=== PATIENT | female | born 1950 | race Caucasian/White ===

== ENCOUNTER 2016-12-25 08:44 | Emergency (ER) | payer MEDICARE, OTHER ==
[~2016-12-25] VITALS: Ht 157.5 cm; Wt 50.8 kg
[~2016-12-25 08:44] MED LIST: COMBIVENT RESPIM4 GM INH; NORCO 5-325 TA1 EACH PO; PREDNISONE20 MG PO; SIMVASTATIN20 MG PO; SIMVASTATIN40 MG PO; ZITHROMAX250 MG PO
[2016-12-25] MEDS ORDERED: KEFLEX500 MG PO (10:02)
== END 2016-12-25 11:51 | disposition home or self-care (01) ==
LOC: ED 08:44
PROC: 0H9BXZZ Drainage of Right Upper Arm Skin, External Approach (ICD-10-PCS; principal; 2016-12-25)
DX: L02.411 Cutaneous abscess of right axilla (principal); E78.00 Pure hypercholesterolemia, unspecified; F17.200 Nicotine dependence, unspecified, uncomplicated; Z90.710 Acquired absence of both cervix and uterus; Z88.5 Allergy status to narcotic agent; Z88.8 Allergy status to other drugs, medicaments and biological substances
CPT/HCPCS: 10060; 99283

== ENCOUNTER 2018-10-31 18:24 | Emergency (ER) | payer MEDICARE, OTHER ==
[~2018-10-31] VITALS: Ht 157.5 cm; Wt 50.8 kg
[~2018-10-31 18:24] MED LIST changes: +KEFLEX500 MG PO
--- OUTSIDE RECORDS SUMMARY | 2018-10-31 18:26 | XMS ---
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 Bridger has no Care Guidelines for this patient. John VISIT COUNT (12 MO.) 1 AMANUEL Dawson TOTAL 1 NOTE: Visits indicate total known visits. ED/UCC VISIT TRACKING (12 MO.) 10/31/2018 18:25 AMANUEL Hernandez [place] TYPE: Emergency COMPLAINT: - WEAKNESS/DIZZY INPATIENT VISIT TRACKING (12 MO.) No inpatient visits to display in this time frame [email or web address]
[2018-10-31] MEDS ORDERED: ZOCOR40 MG PO (18:41)
[2018-10-31] MEDS ORDERED: DOXYCYCLINE HY100 MG PO (20:25)
--- NOTE | 2018-11-01 12:36 | EKG ---
[facility] [address] [facility] [place], [place] [address] Signed Normal sinus rhythm Possible Left atrial enlargement Left axis deviation Abnormal ECG No previous ECGs available Confirmed by LESVIA ELKINS DO ([id number]) on 11/01/2018 12:36:11 PM Electronically Signed By: LESVIA ELKINS DO 11/01/18 1236 PATIENT NAME: KT SONG Electrocardiogram DATE OF : 48 PHYSICIAN: LESVIA ELKINS DO REPORT #: [id number] REPORT IS CONFIDENTIAL AND NOT TO BE RELEASED WITHOUT AUTHORIZATION
== END 2018-10-31 20:44 | disposition home or self-care (01) ==
LOC: ED 18:24
DX: S30.860A Insect bite (nonvenomous) of lower back and pelvis, initial encounter (principal); R42 Dizziness and giddiness; E78.00 Pure hypercholesterolemia, unspecified; F17.200 Nicotine dependence, unspecified, uncomplicated; Z90.710 Acquired absence of both cervix and uterus; Z91.048 Other nonmedicinal substance allergy status; Z88.5 Allergy status to narcotic agent; W57.XXXA Bitten or stung by nonvenomous insect and other nonvenomous arthropods, initial encounter
CPT/HCPCS: 70450; 80053; 84484; 85025; 93005; 93010; 99284-25

== ENCOUNTER 2021-03-17 20:06 | Emergency (ER) | payer OTHER, MEDICARE ==
[~2021-03-17] VITALS: Ht 157.5 cm; Wt 52.2 kg
[~2021-03-17 20:06] MED LIST changes: +DOXYCYCLINE HY100 MG PO; +ZOCOR40 MG PO
--- OUTSIDE RECORDS SUMMARY | 2021-03-17 20:08 | XMS ---
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 John VISIT COUNT (12 MO.) 1 AMANUEL Dawson TOTAL 1 NOTE: Visits indicate total known visits. ED/UCC VISIT TRACKING (12 MO.) 03/17/2021 20:06 AMANUEL Winston TYPE: Emergency COMPLAINT: - FALL, LT LEG PAIN INPATIENT VISIT TRACKING (12 MO.) 05/01/2020 15:58 [facility] Enrico MENDOZA TYPE: Inpatient DIAGNOSES: - Fistula of vagina to large intestine 05/01/2020 08:06 [facility] Enrico MENDOZA TYPE: Colorectal Surgery DIAGNOSES: - Fistula of vagina to large intestine [id number]
--- NOTE | 2021-03-18 18:10 | EKG ---
[facility] [address] [facility] [place] [address] Signed Sinus tachycardia Possible Left atrial enlargement Left axis deviation Septal infarct , age undetermined Abnormal ECG When compared with ECG of 31-OCT-2018 18:59, Septal infarct is now present T wave inversion now evident in Anterior leads Confirmed by ORTIZ HAIRSTON MD ([id number]) on 03/18/2021 6:10:36 PM Electronically Signed By: ORTIZ HAIRSTON MD 03/18/21 1810 PATIENT NAME: KT SONG Electrocardiogram DATE OF : 48 PHYSICIAN: ORTIZ HAIRSTON MD REPORT #: [id number] REPORT IS CONFIDENTIAL AND NOT TO BE RELEASED WITHOUT AUTHORIZATION
== END 2021-03-18 05:38 | disposition short-term general hospital (02) ==
LOC: ED 20:06
DX: S72.002A Fracture of unspecified part of neck of left femur, initial encounter for closed fracture (principal); W01.10XA Fall on same level from slipping, tripping and stumbling with subsequent striking against unspecified object, initial encounter; E78.00 Pure hypercholesterolemia, unspecified; Z88.5 Allergy status to narcotic agent; Z88.8 Allergy status to other drugs, medicaments and biological substances; Z79.899 Other long term (current) drug therapy; Z20.822 Contact with and (suspected) exposure to COVID-19
CPT/HCPCS: 51702; 71045; 73502; 73552; 80053; 85025; 93005; 93010; 99285-25; C9803; J1170; J1940; J2405; J3010; J7030; U0003

== ENCOUNTER 2023-01-06 05:40 | Day surgery (SDC) | payer MEDICARE, MEDICAID ==
[2022-12-30 08:25] VITALS: BP 135/76
[~2023-01-06] VITALS: Ht 157.5 cm; Wt 57.0 kg
[~2023-01-06 05:40] MED LIST changes: +LISINOPRIL20 MG PO
[2023-01-06 05:51] VITALS: BP 117/61
[2023-01-06 09:48] VITALS: BP 124/55
--- NOTE | 2023-01-06 09:57 | NUR ---
01/06/23 0957 Esthela Berg 0811 PT ARRIVED IN PACU SLEEPY WITH NO C/O'S. 0900 OXYGEN SATS DROPPED TO 88-89% ON RA. ENCOURAGED COUGH, DEEP BREATHING WITH NO CHANGE IN SATS. O2 @ 2L VIA NC PLACED. WHILE PLACING THE TUBING BEHIND R EAR, NOTICED PT'S EAR WAS SWOLLEN AND CRUSTY ALL AROUND EAR. SPOKE WITH DR PEARSON AND APPOINTMENT MADE FOR PT TO SEE PCP TOMORROW AT 8AM. 0915 RESTING. REU. 0924 C/O BLADDER PAIN 02/06. FENTANYL 50MCG GIVEN IVP. 0935 PAIN DOWN TO 10/07. SIPPING ON WATER. 0940 TO DS. REPORT GIVEN TO RN.
[2023-01-06 11:00] VITALS: BP 121/54
--- NOTE | 2023-01-06 11:26 | NUR ---
0940 PATIENT BACK TO ROOM 12. VITAL SIGNS COMPLETED. REPORT RECIEVED FROM KUMAR CLARK. PATIENT DROWSY. PATIENT ON 2 LITERS OF OXYGEN VIA NASAL CANNULA. BREATHING EQUAL AND UNLABORED. PATIENT OXYGEN SATURATIONS ABOVE 90%. PATIENT HAS NO DRAINAGE FROM SURGICAL SITE. IVF INFUSING CALL LIGHT WITHIN REACH NO FUTHER NEEDS. NO QUESTIONS AT THIS TIME. AT BEDSIDE. 1000 ATTEMPTED TO TITRATE PATIENT OFF OF OXYGEN. PATIENT OXYGEN MAINTAINING ABOVE 88-90%. PATIENT ON 2 LITERS. BREATHING EQUAL AND UNLABORED. PATIENT HEAD OF BED ELEVATED. PATIENT DRINKING WATER AND EATING PUDDING. 1010 PATIENT MAINTAINING 90-92% ON ROOM AIR. PATIENT AMBULATED TO THE RESTROOM VOIDED 100 YELLOW AND CLEAR URINE. AMBULATED BACK. OXYGEN 85% ON ROOM AIR. PATIENT BACK ON OXYGEN 4 LITERS VIA NASAL CANNULA. PATIENT BREATHING LABORED BUT RECOVERED TO 90-94% ON ROOM AIR. 1015 RT CALLED INTO DO AN ASSESSMENT. 1030 PATIENT OFF OF OXYGEN AT 90-92%. RT ENCOURAGE PATIENT TO NOT SMOKE. EXPLAINS THE RISK OF SMOKING AND SMOKING AFTER SURGERY. 1100 PATIENT ALERT AND ORIENTED. BREATHING EQUAL AND UNLABORED. OXYGEN SATURATIONS BETWEEN 90-94% ON ROOM AIR. PAIN IS A 4/10 AND TOLERABLE. PATIENT HAS NO DRAINAGE AT SURGICAL SITE. PATIENT DENIES BEING NAUSEATED. PATIENT HAS MET DISCHARGE CRITERIA. PATIENT GIVEN DISCHARGE INSTRUCTIONS. NO QUESTIONS AT THIS TIME. PATIENT DRESSED SELF AND TOLERATED IT WELL. IV D/C'D WNL. PATIENT WHEELED OUT OF FACILITY NO FUTHER NEEDS.
--- NOTE | 2023-01-06 13:11 | NUR ---
PT IN BED. ACCOMPANIED BY OLIVER. EXPRESSED HOPE THAT BIOPSY DOES NOT FIND CANCER. PRAYED.
--- NOTE | 2023-01-07 09:12 | OR ---
[facility] [address] [facility] [place], [place] [address] Signed DATE OF OPERATION: 01/06/2023 SURGEON: Luanne Pearson MD PREOPERATIVE DIAGNOSES: 1. Bladder wall thickening. 2. Superficial erythema noted on the posterior bladder wall on recent cystoscopy. POSTOPERATIVE DIAGNOSES: 1. Bladder wall thickening. 2. Superficial erythema noted on the posterior bladder wall on recent cystoscopy. NAMES OF PROCEDURES: 1. Diagnostic cystoscopy. 2. Bladder biopsy, simple x5. ANESTHESIA: MAC. ESTIMATED BLOOD LOSS: None. COMPLICATIONS: None. DRAINS: None. SPECIMENS: A total of five small pieces of tissue obtained from four different areas of the bladder. INDICATIONS FOR PROCEDURE: Pam is a very pleasant 72-year-old female who I initially met late last year after she suffered a fall from standing and lacerated her kidney. She has been undergoing surveillance CT scans and her hematoma has been improving slowly but surely. However, on her most recent CT of the abdomen and pelvis performed in August 2022. There was some bladder wall thickening noted primarily on the anterior superior portion of the bladder wall. At that time the radiologist thought it was consistent with cystitis. However, malignancy could not be ruled out. She does have a long-standing history of tobacco use. She presents today to undergo cystoscopy with bladder biopsy for definitive Electronically Signed By: LUANNE PEARSON MD 01/07/23 0912 PATIENT NAME: PAM SONG OPERATIVE REPORT DATE OF : 48 REPORT #: [id number] PHYSICIAN: LUANNE PEARSON MD PCP: MAX CHANCE NP REPORT IS CONFIDENTIAL AND NOT TO BE RELEASED WITHOUT AUTHORIZATION [facility] [address] [place], [place] [address] Signed diagnosis for a superficial bladder wall lesion noted on recent diagnostic cystoscopy. OPERATIVE FINDINGS: 1. On cystoscopy, there was no evidence of any obvious bladder masses or stones. There is a somewhat well-circumscribed area of erythema on the superior aspect of the posterior bladder wall. There is a smaller area of erythema near the dome of the bladder as well. The remainder of the bladder appears completely normal. I obtained two biopsies from the initial area of erythema and another biopsy of the area of erythema near the dome of the bladder. I then obtained a couple more of random bladder biopsies as well. 2. Bilateral ureteral orifices are noted to be in their normal anatomic location effluxing clear urine. DESCRIPTION OF PROCEDURE: After informed consent was obtained, the patient was taken back to the operating room. She was transferred from the [facility] to the operating room table, where MAC anesthesia was induced. She was placed in the dorsal lithotomy position and the genitalia prepped and draped in standard sterile fashion. Using a 30-degree lens on 22.5 half Ethiopian introducer, rigid cystoscope was inserted through the urethra and into her bladder under direct visualization. Panendoscopic views of the bladder were then obtained. Please see above findings. Attention was turned to the initial area of erythema on the superior aspect of the posterior bladder wall. This is the largest area of erythema measuring approximately 2 cm or so. A cold cup biopsy was used to take two separate biopsies of this area. I took another cold cup biopsy of the smaller area of erythema near the dome of the bladder. There was no abnormality seen on the anterior bladder wall. I also took a couple of random bladder biopsies, one of which was from the lower posterior wall of the bladder. The lateral sin of bladder appear well within normal limits. The areas that were biopsied were then cauterized using Bugbee electrocautery without difficulty. At the end of the procedure, I was able to appreciate all of the biopsied areas had been properly cauterized. The patient's bladder was then drained, and the cystoscope was removed. The procedure was terminated. She was awoken from anesthesia, and taken the the PACU in stable condition. DISPOSITION: I discussed the details of today's procedure with her , and answered all of his questions. She was given Oxydocone 5 mg #10 PRN pain, along with Cipro 250 mg BID for a total of 7 days. I told the patient that she will be informed of her pathology results as soon as they are available to me. Otherwise, she will RTC in 6-8 weeks for a post operative evaluation. In the interim, she was instructed to stay away from acidic foods and beverages. Electronically Signed By: LUANNE PEARSON MD 01/07/23911 PATIENT NAME: PAM SONG OPERATIVE REPORT DATE OF : 48 REPORT #: [id number] PHYSICIAN: LUANNE PEARSON MD PCP: MAX CHANCE NP REPORT IS CONFIDENTIAL AND NOT TO BE RELEASED WITHOUT AUTHORIZATION [facility] [address] [place] [address] Signed MD SHORTY Mcgill/ONELIA /[id number] Copies: ~ Electronically Signed By: LUANNE PEARSON MD 01/07/23911 PATIENT NAME: MARIAHCRUZCHRISTOPAM OPERATIVE REPORT DATE OF : 48 REPORT #: [id number] PHYSICIAN: LUANNE PEARSON MD PCP: MAX CHANCE NP REPORT IS CONFIDENTIAL AND NOT TO BE RELEASED WITHOUT AUTHORIZATION
--- NOTE | 2023-01-07 12:57 | PATH ---
[facility] [address] [place], [place] [address] Signed SPECIMEN(S): A BLADDER BIOPSY, POSTERIOR WALL SPECIMEN(S): B BLADDER BIOPSY, DOME SPECIMEN(S): C BLADDER BIOPSY, LOW POSTERIOR WALL SPECIMEN SOURCE: A. BLADDER BIOPSY, POSTERIOR WALL B. BLADDER BIOPSY, DOME C. BLADDER BIOPSY, LOW POSTERIOR WALL CLINICAL HISTORY: Bladder wall thickening, microhematuria; history of high grade renal laceration. FINAL PATHOLOGIC DIAGNOSIS: A. Bladder biopsy, posterior wall: - Benign urothelium with superficial chronic stromal inflammation (cystitis). - Negative for evidence of malignancy. B. Bladder biopsy, dome: - Benign urothelium with superficial chronic stromal inflammation (cystitis). - Negative for evidence of malignancy. C. Bladder biopsy, low posterior wall: - Benign urothelium with superficial chronic stromal inflammation (cystitis). - Negative for evidence of malignancy. JVR:kimani:C2NR MICROSCOPIC EXAMINATION: Histologic sections of all submitted blocks are examined by light microscopy. These findings, together with the gross examination, support the pathologic diagnosis. GROSS DESCRIPTION: A. The specimen, labeled and designated "Sohnrey, posterior bladder wall biopsy," is received in formalin and consists of two sexton soft tissue fragments, ranging from 0.3-0.55 cm. Entirely submitted in (A1). B. The specimen, labeled and designated "Sohnrey, bladder biopsy, dome," is received in formalin and consists of one sexton soft tissue fragment, 0.3 x 0.2 x 0.15 cm. Entirely submitted in (B1). C. The specimen, labeled and designated "Sohnrey, low posterior bladder wall biopsy," is received in formalin and consists of one sexton soft tissue fragment, 0.3 x 0.2 x 0.15 cm. Entirely submitted in PATIENT NAME: KT SONG PATHOLOGY DATE OF : 48 REPORT #: [id number] PHYSICIAN: LAURA PATHOLOGY PCP: MAX CHANCE NP REPORT IS CONFIDENTIAL AND NOT TO BE RELEASED WITHOUT AUTHORIZATION [facility] [address] [place], [place] [address] Signed (C1). KA (under the direct supervision of a pathologist) The Gross Description was prepared using a voice recognition system. The report was reviewed for accuracy; however, sound-alike word errors, addition and/or deletions may occur. If there is any question about this report, please contact Client Services. PERFORMING LABORATORY: Technical component was performed by [facility], [address] [place] [address] (CLIA# [id number]). Professional interpretation was performed by [facility] - [facility], [address] [place] [id number] (CLIA#: [id number]). Diagnostician: Elías Owens MD Pathologist Electronically Signed 01/07/2023 Copies: ~ PATIENT NAME: KT SONG PATHOLOGY DATE OF : 48 REPORT #: [id number] PHYSICIAN: LAURA ESQUEDA PCP: MAX CHANCE NP REPORT IS CONFIDENTIAL AND NOT TO BE RELEASED WITHOUT AUTHORIZATION
--- NOTE | 2023-01-09 06:41 | EKG ---
[facility] [address] [facility] [place] [address] Signed Sinus rhythm with premature atrial complexes Possible Left atrial enlargement Left axis deviation Nonspecific T wave abnormality Abnormal ECG When compared with ECG of 18-MAR-2021 05:02, premature atrial complexes are now present Criteria for Septal infarct are no longer present Nonspecific T wave abnormality, worse in Anterolateral leads Confirmed by JAIRO WAGNER MD ([id number]) on 01/09/2023 6:40:54 AM Electronically Signed By: JAIRO WAGNER 01/09/23 0641 PATIENT NAME: KT SONG Electrocardiogram DATE OF : 48 PHYSICIAN: JAIRO WAGNER REPORT #: [id number] REPORT IS CONFIDENTIAL AND NOT TO BE RELEASED WITHOUT AUTHORIZATION
== END 2023-01-06 11:00 | disposition home or self-care (01) ==
LOC: DS 05:40 → OPS 05:40 → DS 07:30 → OPS 07:30
PROVIDERS: ATTEND Urology
PROC: 0TBB8ZX Excision of Bladder, Via Natural or Artificial Opening Endoscopic, Diagnostic (ICD-10-PCS; principal; 2023-01-06 07:30)
DX: N30.20 Other chronic cystitis without hematuria (principal)
CPT/HCPCS: 00910; 36415; 80048; 81001; 88305; 93005; 93010; J0690; J1100; J2001; J2405; J2704; J3010; J7121